=== PATIENT | male | born 1940 | race Two or more races ===

== ENCOUNTER 2017-10-19 07:44 | Day surgery (SDC) | payer MEDICARE ==
[~2017-10-19] VITALS: Ht 182.9 cm; Wt 117.9 kg
[2017-10-19] MEDS ORDERED: SOTA80TA PO (10:19)
[2017-10-19] MEDS ORDERED: APIX5TAB4 PO (10:19)
[2017-10-19] MEDS ORDERED: TELM1TAB6 PO (10:19)
[2017-10-19] MEDS ORDERED: FENTANYL CITRATE/PF 50MCG/ML 2ML VIAL ONE ×2 (11:22→11:37)
[2017-10-19] MEDS ORDERED: LIDOCAINE HCL 2% JELLY 5ML ONE (11:23)
[2017-10-19] MEDS ORDERED: MIDAZOLAM HCL 5 MG/5 ML VIAL ONE (11:23)
[2017-10-19] MEDS ORDERED: TETRACAINE/BENZOCAINE/BUTAMBEN 20 GM SPRAY MM ONE (11:23)
[2017-10-19] MEDS ORDERED: MIDAZOLAM HCL 2 MG/2 ML VIAL ONE ×2 (11:37→11:46)
[2017-10-19] MEDS ORDERED: ONDANSETRON HCL 4MG/2ML VIAL IV PRN (12:15)
[2017-10-19] MEDS ORDERED: ACETAMINOPHEN 325MG TABLET PO PRN (12:15)
== END 2017-10-19 15:30 | disposition home or self-care (01) ==
LOC: CARD 07:44
PROVIDERS: ATTEND Specialist
DX: I48.1 Persistent atrial fibrillation (principal); I34.0 Nonrheumatic mitral (valve) insufficiency; I10 Essential (primary) hypertension; E66.9 Obesity, unspecified; Z79.899 Other long term (current) drug therapy
CPT/HCPCS: 92960; 93005; 93312; 99152; 99153; J2250; J3010